=== PATIENT | female | born 2000 | race African-American/Black ===

== ENCOUNTER 2023-12-14 09:53 | Observation (INO) ==
--- NOTE | 2023-12-01 13:40 | Anesthesiology Consultation ---
Date of Service December 01, 2023 Assessment & Plan (1) Encounter for pre-operative examination: Chart Review Chart Review: Acceptable Risk for Surgery and Patient NOT seen in Pre Admission Testing Infectious Disease screening: Per PAT nursing assessment on 12/01/23, No known infectious disease contacts in past 10 days or current infectious disease symptoms. No recent travel outside the country. History Surgery Operation Date: 12/14/23 11:20 Proposed Procedures p Bilateral Reduction Mammoplasty - Xuan Meléndez MD Height/Weight Height: 5 ft 7 in Weight: 90.718 kg Allergies Allergy/AdvReac Type Severity Reaction Status Date / Time No Known Allergies Allergy Verified 12/01/23 10:47 Medications Home Medications Medication Instructions Recorded Confirmed Last Taken oxycodone-acetaminophen 5 mg-325 1 tab PO Q4H PRN pain 3 days #18 11/23/23 12/01/23 Unknown mg tablet (Percocet) tabs acetaminophen 325 mg tablet 325 mg PO QID PRN Pain 12/01/23 12/01/23 Unknown (Tylenol) fluticasone propionate 50 1 spray intranasal DAILY PRN 12/01/23 12/01/23 Unknown mcg/actuation nasal Congestion spray,suspension Past Medical History Medical History (Updated 12/01/23 @ 13:39 by Trish Hutson PA-C) Macromastia Past Family History Family History Other Asthma Diabetes Hypertension Past Surgical History Surgical History No history of previous surgery Social History Smoking Status: Former smoker Do You Dip or Chew Tobacco: No Smoking End Date: over a year Hx Alcohol Use: Yes Alcohol type: beer and wine alcohol intake frequency: a few times a month Hx Substance Use: No substance use type: does not use Lab Results Anesthesia Preop Results Results Anesthesia Widget: WBC 6.00 K/ul (4.8-10.8) 11/25/23 Hgb 13.6 g/dl (12.0-16.0) 11/25/23 Hct 41.5 % (37.0-47.0) 11/25/23 Plt 400 K/uL (130-400) 11/25/23 Na 138 mmol/L (136-145) 11/25/23 K 4.1 mmol/L (3.5-5.1) 11/25/23 Cl 105 mmol/L (98-107) 11/25/23 CO2 27 mmol/L (21-32) 11/25/23 BUN 12 mg/dl (6-23) 11/25/23 Creat 0.75 mg/dl (0.6-1.2) 11/25/23 Glucose Level 91 mg/dl (70-99(Fasting)) 11/25/23 PT 10.3 Seconds (9.0-12.0) 11/25/23 INR 0.9 (0.9-1.1) 11/25/23
[~2023-12-14 09:53] MED LIST: DEXAMETHASONE SOD INJ 4 MG/ML VIAL ONE; LIDOCAINE 2% 20 MG/ML 5 ML SYR IV ONE; MIDAZOLAM HCL 1 MG/ML 2ML VIAL ONE; ONDANSETRON INJ 2 MG/ML 2 ML VIAL ONE; PROPOFOL IV EMULSION 10 MG/ML 20 ML VIAL IV ONE; ROCURONIUM BROMIDE 10 MG/ML 5 ML VIAL IV ONE; fentaNYL citrate PF 100 MCG/2 ML VIAL ONE
[2023-12-14] MEDS: LACTATED RINGER'S 1,000 ML IV SCH (10:22)
--- NOTE | 2023-12-14 10:40 | History & Physical Bridge Note ---
Date of Service December 14, 2023 History & Physical Bridge Note I have examined the patient, reviewed the History & Physical and in the interval since the performance of the History & Physical I have noted the following changes of clinical significance: no changes noted
[2023-12-14] MEDS ORDERED: ACETAMINOPHEN 1000 MG/100 ML IV IV ONE (11:02)
[2023-12-14] MEDS: ceFAZolin 2000MG 2,000 MG/15 ML SYR IV SCH ×2 (11:30→17:08)
[2023-12-14] MEDS: TRANEXAMIC ACID 1,000 MG **IV Pre-op IV SCH (11:35)
[2023-12-14] MEDS ORDERED: HYDROmorphone INJ 1 MG/ML SYRINGE ONE (11:50)
[2023-12-14] MEDS ORDERED: SUGAMMADEX SODIUM 200 MG/2 ML VIAL IV ONE (12:27)
[2023-12-14] MEDS: LIDOCAINE 1%/EPINEPHRINE 1:100,000 50 ML VIAL ONE (13:38)
[2023-12-14] MEDS: BUPIVACAINE 0.25% PF 30 ML VIAL ONE (13:45)
[2023-12-14] MEDS: TRANEXAMIC ACID 1,000 MG **IV Intra-op IV SCH (13:45)
--- NOTE | 2023-12-14 14:30 | Post Operative Brief Note ---
PG Immediate Post Op with CF Date of Surgery December 14, 2023 Pre & Post Diagnosis Operation Date: 12/14/23 11:20 Pre-Op Diagnosis: Symptomatic Macromastia Post-Op Diagnosis: Symptomatic Macromastia I identified the patient and participated in the time-out.: Yes Procedure Operation Date: 12/14/23 11:20 Actual Procedures p Bilateral Breast Reduction (Bilateral) - Xuan Meléndez MD Surgeon Xuan Meléndez MD Machine Steak Tenderizer Char Grant PA-C Estimated Blood Loss 20 Findings Consistent with Post-Op Diagnosis Specimens Specimen Description: A: Left Breast Please weigh the breast tissue (Weight 860 grams)(fresh) -out of room at 1302 B: Right Breast Please weigh the breast tissue (Weight 940 grams)(fresh) -out of room at 1355 Drains Jo Catheter
--- NOTE | 2023-12-14 14:34 | Operative Report ---
PG Post Operative Report Pre & Post Diagnosis Operation Date: 12/14/23 11:20 Pre-Op Diagnosis: Symptomatic Macromastia Post-Op Diagnosis: Symptomatic Macromastia I identified the patient and participated in the time-out.: Yes Procedure Operation Date: 12/14/23 11:20 Actual Procedures p Bilateral Breast Reduction (Bilateral) - Xuan Meléndez MD Surgeon Xaun Meléndez MD Test Case Developer Char Grant PA-C Estimated Blood Loss 20 Findings Consistent with Post-Op Diagnosis Specimens left breast 860 grams, right breast 940 grams Drains JPx2 Anesthesia Type General Complications none Indications back, neck, and bilateral shoulder pain due to macromastia Description of Procedure The risks, benefits, and alternatives of the procedure were explained to the patient who agreed and signed consent. She was identified and marked in the preoperative holding area. She was brought to the operating room where she was positioned supine and placed under general anesthesia without incident. Surgical site was prepped and draped sterilely. A time-out procedure was performed. I began with the left side. Markings were reassessed and an 8 cm pedicle was marked. 1% lidocaine with epinephrine was used to anesthetize the planned incisions. A 38 mm cookie cutter was used to circumscribe the nipple-areolar complex. The previously marked 8 cm pedicle was incised using a 15 blade scalpel and deepithelialized. I began with the medial dissection of the pedicle using electrocautery. Cautery was used to incise through dermis and breast parenchyma down to the chest wall, taking care not to undermine the pedicle during dissection. A similar procedure was undertaken on the lateral aspect of the pedicle again taking care not to undermine. Lastly, the pedicle was dissected out superiorly using electrocautery and this was carried down to the chest wall as well. I then began with excision of the medial breast tissue followed by lateral aspect of the breast tissue and surrounding keyhole incision. A 15 blade scalpel was used to make the inframammary fold incision and electrocautery was used to deepen the incision through dermis and breast parenchyma. Dissection was then carried superiorly to the level of the superior incision. Superior incision was then incised using a 15 blade scalpel and again dissected using electrocautery. This was undertaken laterally and then around the keyhole portion of the incision. Care was taken to leave some fat on the lateral pectoralis fascia in order to protect the T4 intercostal nerve. Hemostasis was achieved with electrocautery. The specimen was passed off in its entirety for weighing. Additional resection was undertaken from the superior flap in order to facilitate closure of the breast and to provide the best shape. The total resection weight of the left breast was 860 grams. The wound was irrigated with saline and hemostasis was achieved with electrocautery. 0.25% Marcaine plain was used to anesthetize the incisions as well as the pectoralis fascia. A 15 Faroese Carroll drain was brought out through a separate stab incision. The nipple-areolar complex was brought into the keyhole using 2-0 Vicryl deep dermal suture. The wound was closed first in a lateral to mid breast direction and then medial to mid breast direction using 2-0 Vicryl deep dermal sutures. Vertical limb was also approximated using 2-0 Vicryl deep dermals and the nipple-areolar complex was inset using 2-0 Vicryl deep dermal sutures. Next, the superficial dermal layer was closed using 2-0 PDO running Quill suture along the inframammary fold and 3-0 PDS interrupted dermal sutures along the vertical limb and nipple- areolar complex. Lastly 3-0 Monocryl running subcuticular suture was placed. A similar procedure was undertaken on the right side with maximal excision weight of 940 grams. Breasts were symmetric and nipple-areolar complexes were viable bilaterally following wound closure. Dermabond Prineo was applied along the inframammary fold and vertical limb and Dermabond was placed around the nipple-areolar complex. Dry dressings and a surgical bra were placed. The patient was awakened and transferred to recovery room in satisfactory condition. Char Grant PA-C was present and scrubbed throughout the procedure and was instrumental in providing retraction during dissection of the pedicle and assisting in wound closure. I attest to the content of the Intraoperative Record and any orders documented therein. Any exceptions are noted below.
[2023-12-14] MEDS ORDERED: ATROPINE SULFATE 0.1 MG/ML 10ML SYR IV PRN (15:03)
[2023-12-14] MEDS ORDERED: FLUMAZENIL 0.1 MG/1 ML 10 ML VIAL IV PRN (15:03)
[2023-12-14] MEDS ORDERED: ePHEDrine sulfate 50 MG/ML AMP IV PRN (15:03)
[2023-12-14] MEDS ORDERED: ONDANSETRON INJ 2 MG/ML 2 ML VIAL IV PRN ×2 (15:03→16:37)
[2023-12-14] MEDS ORDERED: NALOXONE HCL 0.4 MG/1 ML VIAL/CARP IV PRN (15:03)
[2023-12-14] MEDS: fentaNYL citrate PF 100 MCG/2 ML VIAL IV PRN (15:05)
--- NOTE | 2023-12-14 15:38 | Anesthesiology Progress Note ---
Date of Service December 14, 2023 Anesthesia Post Procedure Vital Signs Vital Signs: Temp Pulse Resp BP Pulse Ox O2 Del Method O2 Flow Rate 12/14/23 15:35 36.1 C L 62 15 134/87 99 Nasal Cannula 2 12/14/23 15:25 60 15 134/88 100 Nasal Cannula 2 12/14/23 15:15 60 17 129/80 100 Nasal Cannula 2 12/14/23 15:05 89 17 136/87 100 Nasal Cannula 2 12/14/23 14:58 36.0 C L 97 H 17 136/87 100 Nasal Cannula 2 12/14/23 10:22 36.6 C 78 20 120/85 98 Room Air Transfer of Care Handoff Completed per policy Notes Mental Status: alert / awake / arousable and participated in evaluation Patient Amnestic to Procedure: Yes Nausea / Vomiting: adequately controlled Pain: adequately controlled Airway Patency, RR, SpO2: stable & adequate BP & HR: stable & adequate Hydration State: stable & adequate Anesthetic Complications: no major complications apparent and Pt Satisfied with anesthetic care
[2023-12-14] MEDS: HYDROmorphone INJ 1 MG/ML SYRINGE IV PRN (15:59)
[2023-12-14] MEDS ORDERED: diphenhydrAMINE Capsule 25 MG CAP PO PRN (16:37)
[2023-12-14] MEDS ORDERED: PROMETHAZINE 12.5 MG/50.5 ML BAG IV PRN (16:37)
[2023-12-14] MEDS ORDERED: oxyCODONE/ACETAMINOPHEN 5mg/325mg TAB PO PRN (16:37)
[2023-12-14] MEDS ORDERED: MoRPHine SULFATE 2 MG/ML CARP IV PRN (16:37)
[2023-12-14] MEDS ORDERED: LORazepam 0.5 MG TAB PO PRN (16:37)
[2023-12-14] MEDS ORDERED: diphenhydrAMINE 50 MG/ML VIAL IV PRN (16:37)
[2023-12-14] MEDS ORDERED: MoRPHine SULFATE 4 MG/ML 1 ML CARP\\VIAL IV PRN (16:37)
[2023-12-14] MEDS: fentaNYL citrate PF 100 MCG/2 ML VIAL ONE (16:37)
[2023-12-14] MEDS: ACETAMINOPHEN 325 MG TAB PO PRN (16:50)
[2023-12-14] MEDS: PROMETHAZINE HCL 6.25 MG in SODIUM CHLORIDE 0.9% 50 ML IV PRN (17:08)
[2023-12-14] MEDS: ACETAMINOPHEN 1,000 MG/100 ML VIAL IV STA (17:51)
[2023-12-15 03:11] VITALS: TEMP 98.4
[2023-12-15 08:07] VITALS: BP 110/77; PULSE 94; RESP 16; O2SAT 94
[2023-12-15] MEDS: MULTIVITAMIN TAB PO SCH (08:12)
--- NOTE | 2023-12-15 08:24 | Surgery Progress Note ---
Date of Service December 15, 2023 Assessment & Plan (1) S/P bilateral breast reduction: Plan: Drains removed. Will d/c home today, follow-up in the office tomorrow. Admission and Anticipated Discharge Date Admission Date: December 14, 2023 Subjective Isabel is one day s/p bilateral breast reduction. She is feeling well, has good pain control and tolerating a regular diet. She was able to void and ambulate. Physical Exam Physical Exam: nipples pink, viable drain with serosang output- removed Results & Data Vital Signs (Past 12 Hours) Vital Signs Temp Pulse Resp BP BP Pulse Ox O2 Del Method 12/15/23 08:06 36.9 C 94 H 16 110/77 94 Room Air 12/15/23 03:10 36.9 C 105 H 105/73 95 Room Air 12/14/23 23:03 37.1 C 78 110/76 95 Room Air PG Care Time/CCT Total # of Minutes Spent Total Time Spent with Patient: Total time spent is greater than 50% in coordination of care (as documented) at patient's floor/unit and/or counseling patient: Coding Level of Care Code 88564 Post Operative Follow-Up Diagnoses S/P bilateral breast reduction Z98.890
[2023-12-15] MEDS: oxyCODONE/ACETAMINOPHEN 5mg/325mg TAB PO PRN (08:46)
--- NOTE | 2023-12-16 12:07 | Discharge Summary ---
Date of Service December 16, 2023 Admission HPI Per Admitting Provider Patient with history of symptomatic macromastia. Principal Diagnosis macromastia Discharge Exam nipples pink, viable drain with serosang output- removed Discharge Data Allergies Allergy/AdvReac Type Severity Reaction Status Date / Time No Known Allergies Allergy Verified 12/14/23 10:19 Procedures Performed Operation Date: 12/14/23 11:20 Actual Procedures p Bilateral Breast Reduction (Bilateral) - Xuan Meléndez MD Hospital Course (1) S/P bilateral breast reduction: Patient presented to [facility] with history of symptomatic macromastia. She was taken to the OR and underwent bilateral breast reduction. There were no intraoperative complications. She was taken to recovery and transferred to med/surg for observation. On POD#1, she was feeling well. She was tolerating a regular diet and ambulating. On exam, her vitals were stable. Her incisions were CDI and nipples viable. Her drains were removed. She was discharged home with instructions to follow-up in the office in one day. Total Time Total Time Spent Total Time Spent (In Minutes): 15 Discharge Plan Discharge Items Patient Disposition: Home - Self-Care Reason For Visit: Symptomatic Macromastia Discharge Diagnosis: s/p bilateral breast reduction Activity: As commented below Non-emergency contact: Surgeon Call non-emergency contact if: you have any medication questions, your pain is not controlled, you have a fever, your wound has increased redness and your wound has increased drainage Follow-up/Referrals: Char Grant PA-C [Physician Co Founder] - 12/16/23 10:00 am Sofya Briggs MD [Primary Care Provider] - Diet: Regular Addtl Attending Provider Instructions: ACTIVITY RECOMMENDATIONS: __Normal activities _x_No bending, lifting or straining. keep arms at shoulder height or below __No driving __Driving allowed when you are off pain medications _x_Walking permitted __You should have help at home for ___ days DRESSINGS: __No dressings required _x_Keep dressings dry/in place until first office visit __Remove dressings ___ and leave dressings off __Apply ice ___ days __Remove dressings and reapply garment __Apply antibiotic ointment (Bacitracin, Neosporin, etc) to wounds 3-4 times/day for 10 days BATHING: _x_Keep dressings dry _x_Sponge bathing permitted __Showering permitted _x_No swimming, hot tubs or soaking in a tub MEDICATIONS: Resume previous medications unless instructed otherwise by your surgeon. _x_Do not use aspirin, Motrin, Advil or Ibuprofen as these may promote bleeding. Please use Tylenol. _x_Prescription(s) provided: pain medication was provided at your last office visit OTHER INSTRUCTIONS: __Record drain output 2-3 times per day SPECIAL CARE INSTRUCTIONS: * It is normal to have a mild fever after surgery. If your temperature is higher than 101.5 degrees F, please call the office at [phone]. * Constipation is a typical side effect of pain medication. An aluj-ikm-owdnczi stool softener will help relieve this. * Leaking around surgical drains may occur and should not cause concern. Sometimes these drains become clogged. If this happens, remove the bulb and milk the clot out of the tube, then replace the bulb. * Drainage from wounds after liposuction is normal and should be expected. Garments will become soiled. You should protect furniture and bedding. This drainage should mostly subside within 2-3 days. Leave garments in place unless instructed to remove them. * If you have unusual drainage from a wound or are concerned you have an infection or have any questions or concerns, please call the office at [phone]. FOLLOW UP VISIT: If not already scheduled, please call the office, , when you return home after surgery to schedule an appointment to be seen in __1_ days. Pending Studies at Discharge: Yes Stand-Alone Forms: My [facility], Smoking Cessation Medications and DC Order Prescriptions: Continued oxycodone-acetaminophen [Percocet] 5-325 mg tablet 1 tab PO Q4H PRN (Reason: pain) 3 Days Qty: 18 0RF Rx Instructions: Initial therapy. acetaminophen [Tylenol] 325 mg Tablet 325 mg PO QID PRN (Reason: Pain) fluticasone propionate 50 mcg/actuation [place],Suspension 1 spray INTRANASAL DAILY PRN (Reason: Congestion) Rx Instructions: administer into each nostril Discharge Orders: Discharge Order (Routine); Ordered 12/15/23 Ordered By: Char Grant Admission Data Admit Date/Time: 12/14/23 14:48 Attending Provider: Xuan Meléndez Admit Provider: Xuan Meléndez Primary Care Provider: Sofya Briggs Other Interventions: Discharge Summary Assessment (RN) Last Done: 12/15/23 10:37 Coding Level of Care Code 22157 OBS Care - Discharge Diagnoses S/P bilateral breast reduction Z98.890
== END 2023-12-15 11:04 | disposition home or self-care (01) ==
LOC: ASU 09:53 → 3W 09:53